=== PATIENT | female | born 1960 | race Caucasian/White ===

== ENCOUNTER 2016-10-30 20:11 | Inpatient (IN) | payer MEDICAID ==
[~2016-10-30] VITALS: Ht 149.9 cm; Wt 109.8 kg
[2016-10-30 20:16] VITALS: BP 111/68
[2016-10-30] MEDS ORDERED: TETRACAINE 0.5% OPTH SOL 2 ML BTL OP ONE (20:30)
[2016-10-30] MEDS ORDERED: diphenhydrAMINE 50 MG/ML VIAL IVP ONE (20:30)
[2016-10-30] MEDS ORDERED: MORPHINE SULFATE 4 MG/ML SYR IVP ONE (20:30)
[2016-10-30] MEDS ORDERED: NACL 0.9% 1,000 ML IV ONE (20:30)
[2016-10-30] MEDS ORDERED: HYDROmorphone 1 MG/ML AMP IVP ONE (21:55)
[2016-10-30] MEDS ORDERED: ALBUTEROL 0.083% 2.5 MG/3 ML NEBU INH ONE (22:00)
[2016-10-30 22:30] LABS: BASOPHILS # (AUTO) 0.3 K/uL (0.00-0.22); BASOPHILS % (AUTO) 4.4 % (0.0-2.0); EOSINOPHILS # (AUTO) 0.1 K/uL (0-0.4); EOSINOPHILS % (AUTO) 2.1 % (0.0-4.0); HEMATOCRIT 42.5 % (36-48); HEMOGLOBIN 13.9 g/dL (12.0-16.0); LYMPHOCYTES # (AUTO) 1.6 K/uL (2.5-16.5); MEAN CORPUSCULAR HEMOGLOBIN 28 pg (27-31); MEAN CORPUSCULAR HGB CONC 33 g/dL (33-37); MEAN CORPUSCULAR VOLUME 87 fL (80-94); MONOCYTES # (AUTO) 0.4 K/uL (0.8-1.0); MONOCYTES % (AUTO) 5.4 % (1.7-9.3); NEUTROPHILS # (AUTO) 4.7 K/uL (1.8-7.7); NEUTROPHILS % (AUTO) 65.1 % (42.2-75.2); PLATELET COUNT (AUTO) 163 K/uL (140-450); RED BLOOD CELL COUNT(AUTO) 4.89 MIL/uL (4.20-5.40); WHITE BLOOD COUNT (AUTO) 7.1 K/uL (4.8-10.8)
[2016-10-30 22:40] LABS: ANION GAP 15.8 (8-16); CALCIUM 9.1 mg/dL (8.5-10.1); CREATININE 1.2 mg/dL (0.6-1.3); POTASSIUM 3.8 mmol/L (3.5-5.1)
[2016-10-30] MEDS ORDERED: ACETAMINOPHEN 325 MG TAB PO PRN (22:40)
[2016-10-30] MEDS ORDERED: DOCUSATE SODIUM 100 MG GELCAP PO PRN (22:40)
[2016-10-30] MEDS ORDERED: NACL 0.9% 1,000 ML IV SCH (22:40)
[2016-10-30] MEDS ORDERED: ONDANSETRON 4 MG/2 ML VIAL IM/IVP PRN (22:40)
[2016-10-30] MEDS ORDERED: HYDROcodone/APAP 7.5/325 MG 1 TAB PO PRN (22:40)
[2016-10-30] MEDS ORDERED: MORPHINE SULFATE 2 MG/ML SYR IVP PRN (22:40)
[2016-10-30 23:00] VITALS: BP 139/79
[2016-10-30] MEDS ORDERED: ALBUTEROL 0.083% 2.5 MG/3 ML NEBU INH PRN (23:10)
[2016-10-30] MEDS ORDERED: DEXTROSE 50% 50 ML SYR IVP PRN (23:10)
[2016-10-30 23:36] LABS: PARTIAL THROMBOPLASTIN TIME 24.5 secs (22-35.6); PROTHROMBIN TIME 9.7 secs (10.8-13.4)
[2016-10-30] MEDS ORDERED: diphenhydrAMINE 50 MG/ML VIAL IVP PRN (23:55)
[2016-10-31] MEDS ORDERED: LISI10TA11 PO (00:01)
[2016-10-31] MEDS ORDERED: ALBU0.63 IH (00:01)
[2016-10-31] MEDS ORDERED: EMPA10TA PO (00:01)
[2016-10-31 00:20] LABS: CHOL/HDL RATIO 5.8 (1-4.5); FREE T4 (FREE THYROXINE) 1.15 ng/dL (0.76-1.46); PHOSPHORUS 3.3 mg/dL (2.5-4.9); THYROID STIMULATING HORMONE 1.07 uIU/mL (0.34-3.74)
[2016-10-31] MEDS ORDERED: PNEUMOCOCCAL VACCINE 23 MCG/0.5 ML VIAL IMVAC PRN (01:05)
[2016-10-31 04:00] VITALS: BP 131/76
[2016-10-31] MEDS: BLOOD GLUCOSE MONITORING 1 DEV DEV FS SCH ×2 (06:32→11:44)
[2016-10-31] MEDS: INSULIN LISPRO SLIDING SCALE 100 UNITS/ML VIAL SUBQ PRN ×2 (06:33→11:45)
[2016-10-31 08:00] VITALS: BP 102/55
[2016-10-31] MEDS ORDERED: LISINOPRIL 10 MG TAB PO SCH (09:00)
[2016-10-31] MEDS ORDERED: OPTHALMIC IRRIGATION 15 ML BTL OP SCH (09:01)
[2016-10-31] MEDS ORDERED: SIMVASTATIN 20 MG TAB PO SCH (21:00)
[2016-11-01 06:27] LABS: T4 (THYROXINE) 9.1 ug/dL (4.5-12.0)
[2016-11-01 07:46] LABS: HEMOGLOBIN A1C 11.2 % (4.8-5.6)
== END 2016-10-31 15:30 | disposition home or self-care (01) | DRG 816 ==
LOC: MED 20:11 → MTU 22:07
PROVIDERS: ADMIT Family Medicine; ATTEND Family Medicine
DX: T52.0X1A Toxic effect of petroleum products, accidental (unintentional), initial encounter (principal); N17.0 Acute kidney failure with tubular necrosis; J68.0 Bronchitis and pneumonitis due to chemicals, gases, fumes and vapors; E11.65 Type 2 diabetes mellitus with hyperglycemia; E66.01 Morbid (severe) obesity due to excess calories; E78.5 Hyperlipidemia, unspecified; I10 Essential (primary) hypertension; Z85.528 Personal history of other malignant neoplasm of kidney; Z90.49 Acquired absence of other specified parts of digestive tract; Z90.710 Acquired absence of both cervix and uterus; Z68.42 Body mass index [BMI] 45.0-49.9, adult; Y92.89 Other specified places as the place of occurrence of the external cause; Z90.5 Acquired absence of kidney; Z79.899 Other long term (current) drug therapy
CPT/HCPCS: 36415; 71010; 80048; 82150; 82948; 83036; 83690; 83735; 83880; 84100; 84436; 84439; 84443; 84479; 84484; 85025; 85610; 85730; 87081; 90732; 93005; 94640; 96361; 96374; 96375; 99285; J1170; J1200; J2270; J7030; J7613; Q0092